=== PATIENT | male | born 1970 | race American Indian/Alaskan Native ===

== ENCOUNTER 2020-08-09 02:11 | Observation (INO) | payer BC ==
[2020-08-09] MEDS ORDERED: Lactated Ringers 1,000 ML IV ONE (03:02)
[2020-08-09] MEDS ORDERED: HYDROmorphone 1 MG/ML Syringe IVPUSH PRN ×2 (03:07→09:20)
[2020-08-09] MEDS ORDERED: Ondansetron 4 MG/2 ML SDV IVPUSH PRN (03:09)
[2020-08-09] MEDS ORDERED: Lactated Ringers 1,000 ML IV SCH (03:15)
[2020-08-09] MEDS: Piperacillin/Tazobactam 3.375 GM in Sodium Chloride 0.9% 50 ML IV SCH ×4 (04:48→22:27)
[2020-08-09] MEDS ORDERED: Bupivacaine 0.5% 30 ML SDV ONE (07:16)
[2020-08-09] MEDS ORDERED: fentaNYL 250 MCG/5 ML SDV ONE ×2 (07:26→08:06)
[2020-08-09] MEDS ORDERED: Midazolam 1 MG/ML 2 ML SDV ONE (07:26)
[2020-08-09] MEDS ORDERED: diphenhydrAMINE 25 MG Cap PO PRN (07:27)
[2020-08-09] MEDS ORDERED: Propofol 200 MG/20 ML SDV ONE (07:29)
[2020-08-09] MEDS ORDERED: Ketorolac 30 MG/ML SDV ONE (07:30)
[2020-08-09] MEDS ORDERED: Rocuronium Bromide 50 MG/5 ML Syringe ONE ×2 (07:30→08:28)
[2020-08-09] MEDS ORDERED: Lidocaine 2% 5 ML SDV ONE (07:30)
[2020-08-09] MEDS ORDERED: Ondansetron 4 MG/2 ML SDV ONE (07:30)
[2020-08-09] MEDS ORDERED: Glycopyrrolate 0.2 MG/ML SDV ONE (07:30)
[2020-08-09] MEDS ORDERED: Sugammadex Sodium 200 MG/2 ML VIAL ONE (07:32)
--- NOTE | 2020-08-09 07:36 | PCM.HP.2 ---
H&P History of Present Illness - General Date of Service: 08/09/20 Admit Problem/Dx: Admission Diagnosis/Problem Admission Diagnosis/Problem Appendicitis Source of Information: Patient History Limitations: Reports: No Limitations - History of Present Illness Initial Comments - Free Text/Narative: Patient is a 50 year old male with a history of HTN, HLD, and MARGARITO who presents with acute appendicitis. He developed sharp lower abdominal pain yesterday afternoon. He presented to an OSH. His vitals were stable. He had an elevated WBC of 15K. A CT abdomen pelvis was performed which showed a dilated inflamed appendix associated with an appendicolith. This was consistent with acute appendicitis. He was given IV zosyn and fluids. He was sent by ambulance. While in the ambulance he was given IV tylenol for fever of 102F. He was admitted here, given a 1L bolus of LR and his fever broke. This morning he is comfortable and vitals are stable. - Related Data Allergies/Adverse Reactions: Allergies Allergy/AdvReac Type Severity Reaction Status Date / Time No Known Allergies Allergy Verified 08/09/20 04:12 Past Medical History Cardiovascular History: Reports: High Cholesterol, Hypertension Respiratory History: Reports: Sleep Apnea Other Respiratory History: pt stated not using CPAP coz it's broken Gastrointestinal History: Reports: Other (See Below) Other Gastrointestinal History: GERD, hiatal hernia Endocrine/Metabolic History: Reports: Obesity/BMI 30+ - Infectious Disease History Infectious Disease History: Reports: Other (See Below) - Past Surgical History Cardiovascular Surgical History: Reports: None Respiratory Surgical History: Reports: None Musculoskeletal Surgical History: Reports: Other (See Below) Other Musculoskeletal Surgeries/Procedures:: Rt arm and screws on elbow and shoulder Social & Family History - Tobacco Use Tobacco Use Status *Q: Never Tobacco User - Caffeine Use Caffeine Use: Reports: Coffee, Tea - Recreational Drug Use Recreational Drug Use: No H&P Review of Systems - Review of Systems: Review Of Systems: Comprehensive ROS is negative, except as noted in HPI. Exam - Exam Exam: See Below - Vital Signs Vital Signs: Last Vital Signs Temp 36.3 C 08/09/20 07:25 Pulse 82 08/09/20 07:25 Resp 17 08/09/20 07:25 BP 124/70 08/09/20 07:25 Pulse Ox 94 L 08/09/20 07:25 Weight: 116.664 kg - Exam Quality Assessment: Supplemental Oxygen General: Alert, Oriented HEENT: Conjunctiva Clear, Mucosa Moist & Utting, Posterior Pharynx Clear Neck: Supple, Trachea Midline Lungs: Clear to Auscultation, Normal Respiratory Effort Cardiovascular: Regular Rate, Regular Rhythm GI/Abdominal Exam: Soft, Non-Tender, No Distention, No Mass Back Exam: Normal Inspection Extremities: Normal Inspection - Patient Data Lab Results Last 24 hrs: Laboratory Results - last 24 hr 08/09/20 Range/Units 02:37 SARS-CoV-2 RNA (BERTHA) NEGATIVE (NEGATIVE) Sepsis Event Note - Evaluation Sepsis Screening Result: No Definite Risk - Focused Exam Vital Signs: Vital Signs Temp Pulse Resp BP Pulse Ox 08/09/20 07:25 36.3 C 82 17 124/70 94 L 08/09/20 05:00 37.5 C 90 17 145/82 H 95 08/09/20 02:30 38.2 C H 102 H 18 147/90 H 95 - Problem List (1) Appendicitis SNOMED Code(s): 00280517 ICD Code: K37 - UNSPECIFIED APPENDICITIS Status: Acute Current Visit: Yes Problem List Initiated/Reviewed/Updated: Yes Orders Last 24hrs: Active Orders 24 hr Category Date Time Status Patient Status [ADT] Routine ADT 08/09/20 07:27 Ordered Intake and Output [RC] QSHIFT Care 08/09/20 07:27 Ordered Oxygen Therapy [RC] PRN Care 08/09/20 07:27 Ordered RT Incentive Spirometry [RC] Q1HWA Care 08/09/20 07:27 Ordered Up ad Melva [RC] ASDIRECTED Care 08/09/20 07:27 Ordered Vital Signs [RC] PER UNIT ROUTINE Care 08/09/20 07:27 Ordered NPO Now [Nothing per Oral Now Diet] [DIET] Diet 08/09/20 Breakfast Active Regular Diet [DIET] Diet 08/09/20 Lunch Ordered Acetaminophen/HYDROcodone [[place] 325-5 MG] Med 08/09/20 07:27 Ordered 2 tab PO Q4H PRN HYDROmorphone [Dilaudid] Med 08/09/20 03:07 Active 0.5 mg IVPUSH Q1H PRN Lactated Ringers [Ringers, Lactated] 1,000 ml Med 08/09/20 03:15 Active IV ASDIRECTED Omeprazole Med 08/09/20 12:00 Ordered 40 mg PO ONETIME Ondansetron [Zofran] Med 08/09/20 03:09 Active 4 mg IVPUSH Q6H PRN Piperacillin/Tazobactam [Piperacil-Tazobact] 3.375 gm Med 08/09/20 05:00 Active Sodium Chloride 0.9% [Normal Saline] 50 ml IV Q6H diphenhydrAMINE [Benadryl] Med 08/09/20 07:27 Ordered 50 mg PO Q4H PRN polyethylene glycoL 3350 [MiraLAX] Med 08/09/20 18:00 Ordered 17 gm PO DAILY Resuscitation Status Routine Resus Stat 08/09/20 07:27 Ordered Medication Orders Hydromorphone HCl (Hydromorphone 1 Mg/Ml Syringe) 0.5 mg IVPUSH Q1H PRN PRN Reason: Pain Last Admin: 08/09/20 04:29 Dose: 0.5 mg Documented by: AMARI Lactated Ringer's (Ringers, Lactated) 1,000 mls @ 125 mls/hr IV ASDIRECTED [facility] Last Admin: 08/09/20 05:03 Dose: 125 mls/hr Documented by: AMARI Piperacillin Sod/Tazobactam (Sod 3.375 gm/ Sodium Chloride) 50 mls @ 100 mls/hr IV Q6H [facility] Last Admin: 08/09/20 04:48 Dose: 100 mls/hr Documented by: AMARI Ondansetron HCl (Ondansetron 4 Mg/2 Ml Sdv) 4 mg IVPUSH Q6H PRN PRN Reason: Nausea/Vomiting Last Admin: 08/09/20 06:09 Dose: 4 mg Documented by: AMARI Assessment/Plan Comment:: The patient and I discussed the pathophysiology of acute appendicitis. I explained the need for an appendectomy. I will attempt this laparoscopically but convert to open should I be unable to perform it safely. We discussed the expected perioperative course and the risks including bleeding, infection or damage to surrounding structures. He verbalized understanding and wishes to proceed. He mentioned to the nurses that he has MARGARITO. He has a machine at home but it is broken and he doesnt use it. Will monitor his respiratory status overnight, so his patient status was changed to observation for now.
--- NOTE | 2020-08-09 07:40 | PCM.PREANE ---
Preanesthetic Assessment - Anesthesia/Transfusion/Family Hx Anesthesia History: Prior Anesthesia Without Reaction Family History of Anesthesia Reaction: No Transfusion History: No Prior Transfusion(s) - Physical Assessment NPO Status Date: 08/09/20 NPO Status Time: 00:05 Vital Signs: Last Vital Signs Temp 36.8 C 08/09/20 07:25 Pulse 82 08/09/20 07:25 Resp 17 08/09/20 07:25 BP 124/70 08/09/20 07:25 Pulse Ox 94 L 08/09/20 07:25 Height: 1.78 m Weight: 116.664 kg ASA Class: 2E - Lab Values: Laboratory Last Values SARS-CoV-2 RNA (BERTHA) NEGATIVE (NEGATIVE) 08/09/20 02:37 - Allergies Allergies/Adverse Reactions: Allergies Allergy/AdvReac Type Severity Reaction Status Date / Time No Known Allergies Allergy Verified 08/09/20 04:12 - Acknowledgements Anesthesia Type Planned: General Anesthesia Pt an Appropriate Candidate for the Planned Anesthesia: Yes Alternatives and Risks of Anesthesia Discussed w Pt/Guardian: Yes Pt/Guardian Understands and Agrees with Anesthesia Plan: Yes PreAnesthesia Questionnaire Cardiovascular History: Reports: High Cholesterol, Hypertension Respiratory History: Reports: Sleep Apnea Other Respiratory History: pt stated not using CPAP coz it's broken Gastrointestinal History: Reports: Other (See Below) Other Gastrointestinal History: GERD, hiatal hernia Endocrine/Metabolic History: Reports: Obesity/BMI 30+ - Infectious Disease History Infectious Disease History: Reports: Other (See Below) - Past Surgical History Cardiovascular Surgical History: Reports: None Respiratory Surgical History: Reports: None Musculoskeletal Surgical History: Reports: Other (See Below) Other Musculoskeletal Surgeries/Procedures:: Rt arm and screws on elbow and shoulder - SUBSTANCE USE Tobacco Use Status *Q: Never Tobacco User Recreational Drug Use History: No - CURRENT (IN HOUSE) MEDS Current Meds: Current Medications Hydrocodone Bitart/Acetaminophen (Acetaminophen/Hydrocodone 325-5 Mg Tab) 2 tab PO Q4H PRN PRN Reason: Pain (moderate 4-6) Diphenhydramine HCl (Diphenhydramine 25 Mg Cap) 50 mg PO Q4H PRN PRN Reason: Itching Hydromorphone HCl (Hydromorphone 1 Mg/Ml Syringe) 0.5 mg IVPUSH Q1H PRN PRN Reason: Pain Last Admin: 08/09/20 04:29 Dose: 0.5 mg Documented by: Lactated Ringer's (Ringers, Lactated) 1,000 mls @ 125 mls/hr IV ASDIRECTED [facility] Last Admin: 08/09/20 05:03 Dose: 125 mls/hr Documented by: Piperacillin Sod/Tazobactam (Sod 3.375 gm/ Sodium Chloride) 50 mls @ 100 mls/hr IV Q6H [facility] Last Admin: 08/09/20 04:48 Dose: 100 mls/hr Documented by: Omeprazole (Omeprazole 20 Mg Cap.Cr) 40 mg PO ONETIME [facility] Ondansetron HCl (Ondansetron 4 Mg/2 Ml Sdv) 4 mg IVPUSH Q6H PRN PRN Reason: Nausea/Vomiting Last Admin: 08/09/20 06:09 Dose: 4 mg Documented by: Polyethylene Glycol (Polyethylene Glycol 3350 Powder 17 Gm Packet) 17 gm PO DAILY [facility] Discontinued Medications Bupivacaine HCl (Bupivacaine 0.5% 30 Ml Sdv) Confirm Administered Dose 30 ml .ROUTE .STK-MED ONE Stop: 08/09/20 07:17 Fentanyl (Fentanyl 250 Mcg/5 Ml Sdv) Confirm Administered Dose 250 mcg .ROUTE .STK-MED ONE Stop: 08/09/20 07:27 Glycopyrrolate (Glycopyrrolate 0.2 Mg/Ml Sdv) Confirm Administered Dose 0.2 mg .ROUTE .STK-MED ONE Stop: 08/09/20 07:31 Lactated Ringer's (Ringers, Lactated) 1,000 mls @ 999 mls/hr IV BOLUS ONE Stop: 08/09/20 04:02 Last Admin: 08/09/20 03:31 Dose: 999 mls/hr Documented by: Ketorolac Tromethamine (Ketorolac 30 Mg/Ml Sdv) Confirm Administered Dose 30 mg .ROUTE .STK-MED ONE Stop: 08/09/20 07:31 Lidocaine (Lidocaine 2% 5 Ml Sdv) Confirm Administered Dose 5 ml .ROUTE .STK-MED ONE Stop: 08/09/20 07:31 Midazolam HCl (Midazolam 1 Mg/Ml 2 Ml Sdv) Confirm Administered Dose 2 mg .ROUTE .STK-MED ONE Stop: 08/09/20 07:27 Ondansetron HCl (Ondansetron 4 Mg/2 Ml Sdv) Confirm Administered Dose 4 mg .ROUTE .STK-MED ONE Stop: 08/09/20 07:31 Propofol (Propofol 200 Mg/20 Ml Sdv) Confirm Administered Dose 200 mg .ROUTE .STK-MED ONE Stop: 08/09/20 07:30 Rocuronium [place] (Rocuronium [place] 50 Mg/5 Ml Syringe) Confirm Administered Dose 50 mg .ROUTE .STK-MED ONE Stop: 08/09/20 07:31 Sugammadex Sodium (Sugammadex Sodium 200 Mg/2 Ml Vial) Confirm Administered Dose 200 mg .ROUTE .STK-MED ONE Stop: 08/09/20 07:33
[2020-08-09] MEDS ORDERED: Acetaminophen 1,000 MG in Premix Bag 1 BAG IV PRN (07:43)
[2020-08-09] MEDS ORDERED: fentaNYL 100 MCG/2 ML SDV IVPUSH PRN (07:43)
[2020-08-09] MEDS ORDERED: Famotidine 20 MG/2 ML SDV ONE (07:45)
--- NOTE | 2020-08-09 09:19 | PCM.OPNOTE ---
- General Post-Op/Procedure Note Date of Surgery/Procedure: 08/09/20 Operative Procedure(s): Laparoscopic appendectomy Findings: Grossly inflamed infected and ulcerated appendix. No evidence of gross perforation Pre Op Diagnosis: Appendicitis Post-Op Diagnosis: same Anesthesia Technique: General ET Tube Primary Surgeon: Raven Renee Pathology: appendicitis Fluid Replacement, Intraop: 1,800 Output, Urine Amount: 500 EBL in mLs: 10 Condition: Good Free Text/Narrative:: Intake & Output 08/08/20 08/09/20 08/09/20 22:59 06:59 14:59 Output Total 500 Balance -500
[2020-08-09] MEDS: amLODIPine 5 MG Tab PO SCH (11:36)
[2020-08-09] MEDS ORDERED: Omeprazole 20 MG Cap.CR PO SCH (12:00)
--- NOTE | 2020-08-09 12:16 | OR ---
SURGEON: RAVEN RENEE MD DATE OF PROCEDURE: 08/09/2020 PREOPERATIVE DIAGNOSIS: Acute appendicitis. POSTOPERATIVE DIAGNOSIS: Acute appendicitis. PROCEDURE PERFORMED: Laparoscopic appendectomy. PRIMARY SURGEON: Raven Renee MD. LITIGATION DOCKET MANAGER: Dr. Aleks Lees, memory care program resident. FLUIDS: 1800 mL crystalloid. ESTIMATED BLOOD LOSS: 10 mL. URINE OUTPUT: 500 mL. FINDINGS: Grossly enlarged, inflamed, and ulcerated appendix with no evidence of gross perforation. Localized peritonitis. COMPLICATIONS: None. INDICATIONS: The patient is a 50-year-old male who presented to an outside hospital with a one-day history of abdominal pain. Workup revealed acute appendicitis. The patient was transferred to our hospital. I explained the pathophysiology of acute appendicitis to the patient. I explained the need for an appendectomy. I would attempt this laparoscopically but convert to open should I be unable to perform it safely. I explained the procedure, expected perioperative course, and the risks including bleeding, infection, or damage to surrounding structures. The patient verbalized understanding and wishes to proceed. PROCEDURE IN DETAIL: The patient was brought into the OR and placed on the OR table in supine position. A time-out was completed verifying the patient's name, age, date of , allergies, and procedure to be performed. General endotracheal anesthesia was induced. The patient has a previous elbow injury on the right. Extra padding was placed over this elbow, and care was taken to secure it comfortably to the table. The left arm was tucked to the patient's side. A Pang catheter was placed. The abdomen was prepped and draped in usual standard fashion. I anesthetized an area 3 fingerbreadths below the left subcostal margin in the midclavicular line with 0.5% Marcaine plain. An 11 blade was used to make a 1 cm incision in this area. A 5 mm optical trocar was used to gain entry into the left upper quadrant under direct visualization. The abdomen was insufflated. A 5 mm, 30-degree scope was inserted. I inspected the area underneath my initial trocar placement. No damage to surrounding structures was noted. A 5 mm trocar was placed just left and lateral to the umbilicus. A 12 mm trocar was placed in the lower midline under direct visualization as well. The patient was placed into Trendelenburg position and airplaned slightly to the left. I turned my attention to the right lower quadrant. I identified the cecum and followed the tenia down to the base of the appendix. The appendix appeared inflamed, enlarged, and partially ulcerated. The ileocecal fat pad was adhered over the top of the appendix. Using gentle suction, I was able to peel this off the appendix. The lateral body of the appendix was attached to the sidewall of the abdomen. Using suction, I was able to gently dissect the appendix away from the surrounding attachments. The appendiceal mesentery was then taken down using a Harmonic scalpel device going from distal to proximal. Near the proximal edge, I used a [place] to create a window before using the Harmonic scalpel to ensure that there will be no damage to surrounding structures as I went through this area. Once the appendix was completely freed away from the appendiceal mesentery, I inspected the base of the appendix. Just distal to the base of the appendix, the appendix appeared dilated and there was an ulcerated area. I was able to clear away enough of a cuff at the proximal appendix to staple across it safely. An endoscopic stapling device was brought into the field. I stapled and transected across the base of the appendix using a 45 mm blue load of vladimir. The appendix was then placed in an Endo Catch bag and removed through the 12 mm port site. The port was replaced. I then closely inspected my operative field. It appeared hemostatic. There was no evidence of any purulent material within the right lower quadrant. A small amount of irrigation was used to clear away any fibrinous exudate and clotted blood. It was suctioned out. I then removed my 12 mm trocar and closed the fascia at this site using an interrupted 0 Vicryl suture with a John-Everett device. I inspected my operative field again and ensured it was hemostatic. I then removed my 5 mm trocars under direct visualization and allowed the abdomen to desufflate. The patient was flattened. The subcutaneous fat layer at the 12 mm trocar site was closed with interrupted 3-0 Vicryl sutures. The skin was closed with a running 4-0 Monocryl stitch. My 5 mm trocar sites were closed with interrupted 4-0 Monocryl sutures. Steri-Strips and sterile dressings were applied. The patient had the Pang removed and was extubated. He was taken to the PACU in stable condition. All counts were complete and correct at the end of the case. ALEX / FAUSTINO /[id number]
[2020-08-09] MEDS: Acetaminophen/HYDROcodone 325-5 MG Tab PO PRN ×2 (14:13→22:25)
[2020-08-09] MEDS: Polyethylene Glycol 3350 Powder 17 GM Packet PO SCH (17:55)
[2020-08-09] MEDS ORDERED: Omeprazole 20 MG Cap.CR PO ONE (18:00)
[2020-08-09] MEDS: Topiramate 100 MG Tab PO SCH (22:24)
[2020-08-10] MEDS: Piperacillin/Tazobactam 3.375 GM in Sodium Chloride 0.9% 50 ML IV SCH (04:26)
--- NOTE | 2020-08-10 06:52 | PCM48HPAN ---
Post Anesthesia Note - EVALUATION WITHIN 48HRS OF ANESTHETIC Vital Signs in Normal Range: Yes Patient Participated in Evaluation: Yes Respiratory Function Stable: Yes Airway Patent: Yes Cardiovascular Function Stable: Yes Hydration Status Stable: Yes Pain Control Satisfactory: Yes Nausea and Vomiting Control Satisfactory: Yes Mental Status Recovered: Yes Vital Signs: Last Vital Signs Temp 36.9 C 08/10/20 04:00 Pulse 74 08/10/20 04:00 Resp 16 08/10/20 04:00 BP 125/70 08/10/20 04:00 Pulse Ox 96 08/10/20 04:00
[2020-08-10] MEDS: Topiramate 100 MG Tab PO SCH (08:44)
[2020-08-10] MEDS: amLODIPine 5 MG Tab PO SCH (08:45)
--- NOTE | 2020-08-10 08:47 | PCM.DCSUM1 ---
Discharge Summary - Hospital Course Free Text/Narrative:: Patient is a 50-year-old male who presented to an outside hospital with acute appendicitis. He was transferred to our hospital for surgical management. He underwent an uncomplicated laparoscopic appendectomy. The appendix appeared necrotic but not perforated. He has a history of obstructive sleep apnea which was apparent in the postoperative unit. He has a prescription for CPAP but his machine is broken. He was admitted for observation overnight to monitor his respiratory status. Also given the necrotic nature of his appendix I placed him on IV antibiotics for 24 hours after surgery. Postop day one the patient was doing well. His vital signs were stable. He is tolerating a regular diet. His pain was well managed on oral medications. He was ambulatory without difficulty. He was cleared for discharge. - Discharge Data Discharge Date: 08/10/20 Discharge Disposition: Home, Self-Care 01 Condition: Good - Referral to Home Health Primary Care Physician: PCP None - Discharge Diagnosis/Problem(s) (1) Appendicitis SNOMED Code(s): 56655237 ICD Code: K37 - UNSPECIFIED APPENDICITIS Status: Acute - Patient Summary/Data Operative Procedure(s) Performed: Laparoscopic appendectomy - Patient Instructions Diet: Regular Diet as Tolerated Activity: No Lifting Over 20 Pounds (for four weeks ), Rest and Relax Today Driving: Do Not Drive (for 1 week) Showering/Bathing: No Showering (until Wednesday morning ), No Tub Bathing/Swimming (for 2 weeks ) Wound/Incision Care: Keep Operative Site/Wound Site Clean and Dry Notify Provider of: Fever, Increased Pain, Swelling and Redness, Drainage, Nausea and/or Vomiting - Discharge Plan *PRESCRIPTION DRUG MONITORING PROGRAM REVIEWED*: Yes *COPY OF PRESCRIPTION DRUG MONITORING REPORT IN PATIENT KANE: Yes Home Medications: Home Meds Topiramate 150 mg PO BID 08/09/20 [History] amLODIPine Besylate [Amlodipine Besylate] 10 mg PO DAILY 08/09/20 [History] Patient Handouts: Laparoscopic Appendectomy, Adult, Care After, [id number], Appendicitis, Adult, [id number] Referrals: Raven Renee MD [Physician] - - Discharge Summary/Plan Comment DC Time >30 min.: No - General Info Date of Service: 08/12/20 Functional Status: Reports: Pain Controlled, Tolerating Diet, Ambulating, Urinating. Denies: New Symptoms - Review of Systems General: Reports: No Symptoms HEENT: Reports: No Symptoms Pulmonary: Reports: No Symptoms Cardiovascular: Reports: No Symptoms Gastrointestinal: Reports: No Symptoms - Patient Data Vitals - Most Recent: Last Vital Signs Temp 37.0 C 08/10/20 08:00 Pulse 73 08/10/20 08:00 Resp 20 08/10/20 08:00 BP 139/95 H 08/10/20 08:00 Pulse Ox 93 L 08/10/20 08:00 Weight - Most Recent: 116.664 kg I&O - Last 24 hours: Intake & Output 08/09/20 08/10/20 08/10/20 22:59 06:59 14:59 Intake Total 910 1115 Output Total 1250 Balance -340 1115 Med Orders - Current: Current Medications Hydrocodone Bitart/Acetaminophen (Acetaminophen/Hydrocodone 325-5 Mg Tab) 2 tab PO Q4H PRN PRN Reason: Pain (moderate 4-6) Last Admin: 08/09/20 22:25 Dose: 2 tab Documented by: Amlodipine Besylate (Amlodipine 5 Mg Tab) 10 mg PO DAILY [facility] Last Admin: 08/09/20 11:36 Dose: 10 mg Documented by: Diphenhydramine HCl (Diphenhydramine 25 Mg Cap) 50 mg PO Q4H PRN PRN Reason: Itching Hydromorphone HCl (Hydromorphone 1 Mg/Ml Syringe) 0.5 mg IVPUSH Q4HR PRN PRN Reason: Pain Piperacillin Sod/Tazobactam (Sod 3.375 gm/ Sodium Chloride) 50 mls @ 100 mls/hr IV Q6H [facility] Last Admin: 08/10/20 04:26 Dose: 100 mls/hr Documented by: Ondansetron HCl (Ondansetron 4 Mg/2 Ml Sdv) 4 mg IVPUSH Q6H PRN PRN Reason: Nausea/Vomiting Last Admin: 08/09/20 06:09 Dose: 4 mg Documented by: Polyethylene Glycol (Polyethylene Glycol 3350 Powder 17 Gm Packet) 17 gm PO DAILY [facility] Last Admin: 08/09/20 17:55 Dose: 17 gm Documented by: Topiramate (Topiramate 100 Mg Tab) 150 mg PO BID [facility] Last Admin: 08/09/20 22:24 Dose: 150 mg Documented by: Discontinued Medications Bupivacaine HCl (Bupivacaine 0.5% 30 Ml Sdv) Confirm Administered Dose 30 ml .ROUTE .STK-MED ONE Stop: 08/09/20 07:17 Famotidine (Famotidine 20 Mg/2 Ml Sdv) Confirm Administered Dose 20 mg .ROUTE .STK-MED ONE Stop: 08/09/20 07:46 Fentanyl (Fentanyl 250 Mcg/5 Ml Sdv) Confirm Administered Dose 250 mcg .ROUTE .STK-MED ONE Stop: 08/09/20 07:27 Fentanyl (Fentanyl 100 Mcg/2 Ml Sdv) 50 mcg IVPUSH Q5M PRN PRN Reason: Pain Fentanyl (Fentanyl 250 Mcg/5 Ml Sdv) Confirm Administered Dose 250 mcg .ROUTE .STK-MED ONE Stop: 08/09/20 08:07 Glycopyrrolate (Glycopyrrolate 0.2 Mg/Ml Sdv) Confirm Administered Dose 0.2 mg .ROUTE .STK-MED ONE Stop: 08/09/20 07:31 Hydromorphone HCl (Hydromorphone 1 Mg/Ml Syringe) 0.5 mg IVPUSH Q1H PRN PRN Reason: Pain Last Admin: 08/09/20 04:29 Dose: 0.5 mg Documented by: Lactated Ringer's (Ringers, Lactated) 1,000 mls @ 125 mls/hr IV ASDIRECTED [facility] Last Admin: 08/09/20 05:03 Dose: 125 mls/hr Documented by: Lactated Ringer's (Ringers, Lactated) 1,000 mls @ 999 mls/hr IV BOLUS ONE Stop: 08/09/20 04:02 Last Admin: 08/09/20 03:31 Dose: 999 mls/hr Documented by: Acetaminophen 1,000 mg/ Premix 100 mls @ 400 mls/hr IV Q6H PRN PRN Reason: Pain Last Admin: 08/09/20 09:33 Dose: 400 mls/hr Documented by: Ketorolac Tromethamine (Ketorolac 30 Mg/Ml Sdv) Confirm Administered Dose 30 mg .ROUTE .STK-MED ONE Stop: 08/09/20 07:31 Lidocaine (Lidocaine 2% 5 Ml Sdv) Confirm Administered Dose 5 ml .ROUTE .STK-MED ONE Stop: 08/09/20 07:31 Midazolam HCl (Midazolam 1 Mg/Ml 2 Ml Sdv) Confirm Administered Dose 2 mg .ROUTE .STK-MED ONE Stop: 08/09/20 07:27 Omeprazole (Omeprazole 20 Mg Cap.Cr) 40 mg PO ONETIME [facility] Omeprazole (Omeprazole 20 Mg Cap.Cr) 40 mg PO ONETIME ONE Stop: 08/09/20 18:01 Last Admin: 08/09/20 17:54 Dose: 40 mg Documented by: Ondansetron HCl (Ondansetron 4 Mg/2 Ml Sdv) Confirm Administered Dose 4 mg .ROUTE .STK-MED ONE Stop: 08/09/20 07:31 Propofol (Propofol 200 Mg/20 Ml Sdv) Confirm Administered Dose 200 mg .ROUTE .STK-MED ONE Stop: 08/09/20 07:30 Rocuronium [place] (Rocuronium [place] 50 Mg/5 Ml Syringe) Confirm Administered Dose 50 mg .ROUTE .STK-MED ONE Stop: 08/09/20 07:31 Rocuronium [place] (Rocuronium [place] 50 Mg/5 Ml Syringe) Confirm Administered Dose 50 mg .ROUTE .STK-MED ONE Stop: 08/09/20 08:29 Sugammadex Sodium (Sugammadex Sodium 200 Mg/2 Ml Vial) Confirm Administered Dose 200 mg .ROUTE .STK-MED ONE Stop: 08/09/20 07:33 - Exam General: Reports: Alert, Oriented HEENT: Reports: Pupils Equal, Pupils Reactive Lungs: Reports: Normal Respiratory Effort Cardiovascular: Reports: Regular Rate GI/Abdominal Exam: Soft, Non-Tender, No Distention, No Mass Wound/Incisions: Reports: Drainage (scant serosanguinous draiange on bandages) Neurological: Reports: No New Focal Deficit
[2020-08-10] MEDS: Polyethylene Glycol 3350 Powder 17 GM Packet PO SCH (08:50)
== END 2020-08-10 09:40 | disposition home or self-care (01) ==
LOC: MW.SDS 02:11 → MW.MS 02:12 → MW.SDS 07:27 → MW.MS 07:27
PROVIDERS: ADMIT Surgery; ATTEND Surgery
DX: K35.80 Unspecified acute appendicitis (principal); E66.9 Obesity, unspecified; Z01.812 Encounter for preprocedural laboratory examination; Z20.822 Contact with and (suspected) exposure to COVID-19; Z79.899 Other long term (current) drug therapy
CPT/HCPCS: 44970; 87635; 88304; 96374; 96375; A9270; C1776; G0378; J0131; J1170; J1885; J2250; J2405; J2543; J2704; J3010; J3490; J7120; 00840; U0002